=== PATIENT | male | born 1950 | race Caucasian/White ===

== ENCOUNTER 2022-11-19 06:38 | Emergency (ER) | payer MEDICARE ==
[2022-11-19] MEDS ORDERED: Sodium Chloride 0.9% 1,000 ML IV ONE (07:30)
[2022-11-19 08:20] LABS: ESTIMATED GFR 72 mL/min (>60)
[2022-11-19] MEDS ORDERED: Iopamidol 755 Mg/ML 100 ML Bottle IVPUSH ONE (08:26)
[2022-11-19] MEDS ORDERED: Sodium Chloride 0.9% 10 ML Syringe FLUSH PRN (08:26)
[2022-11-19] MEDS ORDERED: Sodium Chloride 0.9% 100 ML IV SCH (08:30)
== END 2022-11-19 12:05 ==
LOC: JD.ED 06:38
DX: M79.81 Nontraumatic hematoma of soft tissue (principal); I11.0 Hypertensive heart disease with heart failure; I50.9 Heart failure, unspecified; I48.91 Unspecified atrial fibrillation; E78.00 Pure hypercholesterolemia, unspecified; N40.0 Benign prostatic hyperplasia without lower urinary tract symptoms; Z79.899 Other long term (current) drug therapy
CPT/HCPCS: 36415; 71260; 74177; 80053; 81001; 83605; 83690; 84484; 85025; 85027; 85610; 86850; 86900; 86901; 93005; 96360; 99285; J3490; J7030; Q9967

== ENCOUNTER 2022-12-09 19:18 | Emergency (ER) | payer MEDICARE | END 2022-12-09 21:35 | disposition home or self-care (01) | LOC: JD.ED 19:18 | DX: T83.091A Other mechanical complication of indwelling urethral catheter, initial encounter (principal); I48.91 Unspecified atrial fibrillation; I11.0 Hypertensive heart disease with heart failure; I50.9 Heart failure, unspecified; E78.00 Pure hypercholesterolemia, unspecified; Z79.899 Other long term (current) drug therapy | CPT/HCPCS: 99283 ==

== ENCOUNTER 2022-12-11 16:09 | Emergency (ER) | payer MEDICARE | END 2022-12-11 18:57 | disposition home or self-care (01) | LOC: JD.ED 16:09 | DX: N39.0 Urinary tract infection, site not specified (principal); I48.91 Unspecified atrial fibrillation; I11.0 Hypertensive heart disease with heart failure; I50.9 Heart failure, unspecified; E78.00 Pure hypercholesterolemia, unspecified; J44.9 Chronic obstructive pulmonary disease, unspecified; Z79.899 Other long term (current) drug therapy | CPT/HCPCS: 81001; 87086; 87088; 87186; 99283 ==

== ENCOUNTER 2022-12-23 11:27 | Emergency (ER) | payer MEDICARE ==
[2022-12-23] MEDS ORDERED: Sodium Chloride 0.9% 10 ML Syringe FLUSH PRN (12:19)
[2022-12-23] MEDS ORDERED: Furosemide 40 MG/4 ML VIAL IVPUSH ONE (14:52)
== END 2022-12-23 16:48 | disposition home or self-care (01) ==
LOC: JD.ED 11:27
DX: R60.0 Localized edema (principal); I48.91 Unspecified atrial fibrillation; E78.00 Pure hypercholesterolemia, unspecified; I11.0 Hypertensive heart disease with heart failure; I50.9 Heart failure, unspecified; J44.9 Chronic obstructive pulmonary disease, unspecified; N40.0 Benign prostatic hyperplasia without lower urinary tract symptoms; Z86.73 Personal history of transient ischemic attack (TIA), and cerebral infarction without residual deficits; Z79.899 Other long term (current) drug therapy
CPT/HCPCS: 36415; 71045; 80053; 81003; 83880; 84484; 85025; 93005; 96374; 99284; J1940; J3490

== ENCOUNTER 2022-12-28 01:28 | Emergency (ER) | payer MEDICARE ==
[2022-12-28] MEDS ORDERED: Sodium Chloride 0.9% 10 ML Syringe FLUSH PRN (01:51)
[2022-12-28] MEDS ORDERED: Dextrose 5%-Lactated Ringers 1,000 ML IV SCH (02:00)
[2022-12-28 02:50] LABS: HEMOGLOBIN A1C 6.6 %
[2022-12-28 03:01] LABS: ESTIMATED GFR 49 mL/min (>60)
[2022-12-28] MEDS: Potassium Chloride 10 MEQ in Premix Bag 1 BAG IV SCH ×2 (03:37→04:53)
== END 2022-12-28 06:30 | disposition home or self-care (01) ==
LOC: JD.ED 01:28
DX: I11.0 Hypertensive heart disease with heart failure (principal); I50.9 Heart failure, unspecified; E87.6 Hypokalemia; J43.1 Panlobular emphysema; E11.59 Type 2 diabetes mellitus with other circulatory complications; I48.91 Unspecified atrial fibrillation; E78.00 Pure hypercholesterolemia, unspecified; Z79.899 Other long term (current) drug therapy
CPT/HCPCS: 36415; 71045; 80053; 81001; 82553; 83036; 83605; 83735; 83880; 84484; 85025; 85379; 85610; 85730; 93005; 96361; 96365; 96366; 99285; J3480; J3490; J7121; 93010

== ENCOUNTER 2023-01-04 12:23 | Emergency (ER) | payer MEDICARE ==
[2023-01-04] MEDS ORDERED: Sodium Chloride 0.9% 10 ML Syringe FLUSH PRN (12:51)
[2023-01-04] MEDS ORDERED: Sodium Chloride 0.9% 500 ML IV ONE (12:58)
[2023-01-04 13:31] LABS: ESTIMATED GFR 59 mL/min (>60)
[2023-01-04 14:52] LABS: CORONAVIRUS COVID-19 NAA NEGATIVE (NEGATIVE)
== END 2023-01-04 19:45 | disposition home or self-care (01) ==
LOC: JD.ED 12:23
DX: E86.9 Volume depletion, unspecified (principal); R53.1 Weakness; I48.20 Chronic atrial fibrillation, unspecified; I11.0 Hypertensive heart disease with heart failure; I50.9 Heart failure, unspecified; E78.00 Pure hypercholesterolemia, unspecified; J44.9 Chronic obstructive pulmonary disease, unspecified; Z87.891 Personal history of nicotine dependence; Z79.899 Other long term (current) drug therapy; Z20.822 Contact with and (suspected) exposure to COVID-19
CPT/HCPCS: 0241U; 36415; 71045; 80053; 81003; 82947; 83605; 83735; 84484; 85007; 85027; 85610; 85730; 86140; 87040; 93005; 99285; J3490; J7030; 93010

== ENCOUNTER 2023-03-08 15:45 | Inpatient (IN) | payer MEDICARE, MEDICAID ==
[2023-03-08 17:19] LABS: HEMATOCRIT 48.7 % (40.1-51.0); HEMOGLOBIN 15.8 gm/dl (13.7-17.5); MEAN CORPUSCULAR HEMOGLOBIN 27.1 pg (25.7-32.2); MEAN CORPUSCULAR HGB CONC 32.4 g/dl (32.2-35.5); MEAN CORPUSCULAR VOLUME 83.7 fl (79.0-92.2); MEAN PLATELET VOLUME 11.7 fl (9.4-12.3); PLATELET COUNT,PLT 182 K/mm3 (163-337); RED BLOOD CELL COUNT 5.82 M/mm3 (4.63-6.08); WHITE BLOOD CELL COUNT,WBC 9.95 K/mm3 (4.23-9.07)
[2023-03-08 17:38] LABS: INR 1.04; PROTHROMBIN TIME 11.1 SECONDS (9.7-12.0)
[2023-03-08 17:40] LABS: PTT,PARTIAL THROMBOPLSTIN TIME 25.1 SECONDS (21.7-31.4)
[2023-03-08 17:43] LABS: BAND PERCENT MAN 0 % (0-10); BASOPHILS PERCENT MAN 0 (0.2-1.2); EOSINOPHILS PERCENT MAN 1 % (0.8-7.0); LYMPHOCYTES % ATYPICAL MANUAL 0 %; LYMPHOCYTES PERCENT MAN 33 % (20-40); MONOCYTES PERCENT MAN 8 % (2-10)
[2023-03-08 17:44] LABS: PLATELET COUNT ESTIMATE ADEQUATE
[2023-03-08 17:50] LABS: A/G RATIO 1.2 (1-2); ALBUMIN 4.7 g/dl (3.4-5.0); BILIRUBIN TOTAL 2.1 mg/dL (0.2-1.0); BUN/CREATININE RATIO 24.7 (14-18); CALCIUM 9.3 mg/dL (8.5-10.1); CREATININE 1.5 mg/dL (0.7-1.3); EST CRCL DRUG DOSING (CG) 51.05 mL/min; MAGNESIUM 2.4 mg/dL (1.8-2.4); PROTEIN TOTAL,TP 8.7 g/dl (6.4-8.2); TSH 2.368 uIU/mL (0.358-3.74)
[2023-03-08] MEDS ORDERED: Acetaminophen 325 MG Tab PO PRN (17:52)
[2023-03-08 18:31] LABS: APPEARANCE,URINE CLEAR (Clear); BILIRUBIN,URINE NEGATIVE (Negative); COLOR,URINE YELLOW (Yellow); GLUCOSE,URINE 2+ (Negative); KETONES,URINE NEGATIVE (Negative); LEUKOCYTE ESTERASE,URINE NEGATIVE (Negative); NITRITE,URINE NEGATIVE (Negative); OCCULT BLOOD,URINE NEGATIVE (Negative); PROTEIN,URINE NEGATIVE (Negative)
[2023-03-08] MEDS: Heparin Sodium 5,000 Units/ML Vial SUBCUT SCH (19:01)
[2023-03-08] MEDS: Sodium Chloride 0.9% 1,000 ML IV SCH (19:01)
[2023-03-09] MEDS: Heparin Sodium 5,000 Units/ML Vial SUBCUT SCH ×3 (02:57→17:46)
[2023-03-09 06:12] LABS: BASOPHILS ABSOLUTE AUTO 0.02 K/mm3 (0.01-0.08); BASOPHILS PERCENT AUTO 0.2 % (0.1-1.2); EOSINOPHILS PERCENT AUTO 1.2 (0.8-7.0); HEMATOCRIT 41.7 % (40.1-51.0); IMMATURE GRAN ABSOLUTE AUTO 0.02 K/mm3 (0.00-0.10); IMMATURE GRAN PERCENT AUTO 0.2 % (<=1.0); LYMPHOCYTES ABSOLUTE AUTO 2.38 K/mm3 (1.32-3.57); LYMPHOCYTES PERCENT AUTO 28.1 % (21.8-53.1); MEAN CORPUSCULAR HEMOGLOBIN 27.3 pg (25.7-32.2); MEAN CORPUSCULAR HGB CONC 32.6 g/dl (32.2-35.5); MEAN CORPUSCULAR VOLUME 83.7 fl (79.0-92.2); MEAN PLATELET VOLUME 12.1 fl (9.4-12.3); MONOCYTES ABSOLUTE AUTO 1.02 K/mm3 (0.30-0.82); MONOCYTES PERCENT AUTO 12.1 % (5.3-12.2); NEUTROPHILS ABSOLUTE AUTO 4.92 K/mm3 (1.78-5.38); NEUTROPHILS PERCENT AUTO 58.2 % (34.0-67.9); PLATELET COUNT,PLT 160 K/mm3 (163-337); RED BLOOD CELL COUNT 4.98 M/mm3 (4.63-6.08); WHITE BLOOD CELL COUNT,WBC 8.46 K/mm3 (4.23-9.07)
[2023-03-09 06:29] LABS: HEMOGLOBIN 13.6 gm/dl (13.7-17.5)
[2023-03-09 06:30] LABS: A/G RATIO 1.2 (1-2); ALBUMIN 3.5 g/dl (3.4-5.0); ANION GAP 12.9 (5-15); BUN/CREATININE RATIO 25.4 (14-18); CALCIUM 8.7 mg/dL (8.5-10.1); CREATININE 1.3 mg/dL (0.7-1.3); EST CRCL DRUG DOSING (CG) 55.17 mL/min; POTASSIUM,K 3.9 mEq/L (3.5-5.1); PROTEIN TOTAL,TP 6.4 g/dl (6.4-8.2)
[2023-03-09] MEDS ORDERED: Metoprolol Succinate 25 MG Tab.ER PO SCH (09:00)
[2023-03-09] MEDS: Sacubitril/Valsartan 1 EACH Tablet PO SCH ×3 (09:07→22:17)
[2023-03-09] MEDS: Furosemide 20 MG Tab PO SCH ×3 (09:09→21:00)
[2023-03-09] MEDS: Pravastatin 20 MG Tab PO SCH (09:09)
[2023-03-09] MEDS: Potassium Chloride 20 MEQ Tab.ER PO SCH (09:09)
[2023-03-09] MEDS: Sodium Chloride 0.9% 1,000 ML IV SCH (09:17)
[2023-03-09] MEDS: Tamsulosin 0.4 MG Cap.ER PO SCH (10:55)
[2023-03-09] MEDS: Empagliflozin 10 MG Tab PO SCH (10:56)
[2023-03-09] MEDS: QUEtiapine 25 MG Tab PO SCH ×2 (20:15→21:00)
[2023-03-10] MEDS: Heparin Sodium 5,000 Units/ML Vial SUBCUT SCH ×2 (02:26→10:11)
[2023-03-10 06:13] LABS: BASOPHILS ABSOLUTE AUTO 0.01 K/mm3 (0.01-0.08); BASOPHILS PERCENT AUTO 0.1 % (0.1-1.2); EOSINOPHILS ABSOLUTE AUTO 0.02 K/mm3 (0.04-0.54); EOSINOPHILS PERCENT AUTO 0.2 (0.8-7.0); HEMATOCRIT 38.7 % (40.1-51.0); HEMOGLOBIN 12.7 gm/dl (13.7-17.5); IMMATURE GRAN ABSOLUTE AUTO 0.02 K/mm3 (0.00-0.10); IMMATURE GRAN PERCENT AUTO 0.2 % (<=1.0); LYMPHOCYTES ABSOLUTE AUTO 2.05 K/mm3 (1.32-3.57); LYMPHOCYTES PERCENT AUTO 22.5 % (21.8-53.1); MEAN CORPUSCULAR HEMOGLOBIN 27.6 pg (25.7-32.2); MEAN CORPUSCULAR HGB CONC 32.8 g/dl (32.2-35.5); MEAN CORPUSCULAR VOLUME 84.1 fl (79.0-92.2); MEAN PLATELET VOLUME 12.2 fl (9.4-12.3); MONOCYTES ABSOLUTE AUTO 1.56 K/mm3 (0.30-0.82); MONOCYTES PERCENT AUTO 17.1 % (5.3-12.2); NEUTROPHILS ABSOLUTE AUTO 5.45 K/mm3 (1.78-5.38); NEUTROPHILS PERCENT AUTO 59.9 % (34.0-67.9); PLATELET COUNT,PLT 144 K/mm3 (163-337); WHITE BLOOD CELL COUNT,WBC 9.11 K/mm3 (4.23-9.07)
[2023-03-10 06:31] LABS: ALBUMIN 3.3 g/dl (3.4-5.0); ANION GAP 12.5 (5-15); BILIRUBIN TOTAL 2.7 mg/dL (0.2-1.0); CALCIUM 8.7 mg/dL (8.5-10.1); CREATININE 1.2 mg/dL (0.7-1.3); EST CRCL DRUG DOSING (CG) 59.77 mL/min; POTASSIUM,K 3.5 mEq/L (3.5-5.1); PROTEIN TOTAL,TP 6.6 g/dl (6.4-8.2)
[2023-03-10] MEDS ORDERED: Metoprolol Succinate 25 MG Tab.ER PO SCH (09:00)
[2023-03-10 09:16] LABS: SLIDE REVIEW ABNORMAL SMEAR
[2023-03-10] MEDS ORDERED: Furosemide 20 MG Tab PO SCH (10:00)
[2023-03-10] MEDS: Sacubitril/Valsartan 1 EACH Tablet PO SCH (10:09)
[2023-03-10] MEDS: Potassium Chloride 20 MEQ Tab.ER PO SCH (10:10)
[2023-03-10] MEDS: Empagliflozin 10 MG Tab PO SCH (10:10)
[2023-03-10] MEDS: Pravastatin 20 MG Tab PO SCH (10:10)
[2023-03-10] MEDS: Tamsulosin 0.4 MG Cap.ER PO SCH (10:18)
[2023-03-10] MEDS: Furosemide 20 MG Tab PO SCH (13:10)
== END 2023-03-10 16:44 | disposition home or self-care (01) | DRG 641 ==
LOC: JD.ED 15:45 → JD.OB 17:53 → JD.MS 17:54
PROVIDERS: ADMIT Internal Medicine; ATTEND Internal Medicine
DX: R62.7 Adult failure to thrive (principal); E86.0 Dehydration; J43.1 Panlobular emphysema; F03.90 Unspecified dementia, unspecified severity, without behavioral disturbance, psychotic disturbance, mood disturbance, and anxiety; I95.2 Hypotension due to drugs; T44.7X5A Adverse effect of beta-adrenoreceptor antagonists, initial encounter; I48.91 Unspecified atrial fibrillation; I11.0 Hypertensive heart disease with heart failure; F32.A Depression, unspecified; E11.9 Type 2 diabetes mellitus without complications; I50.9 Heart failure, unspecified; J44.9 Chronic obstructive pulmonary disease, unspecified; E78.00 Pure hypercholesterolemia, unspecified; Z68.21 Body mass index [BMI] 21.0-21.9, adult; N40.0 Benign prostatic hyperplasia without lower urinary tract symptoms; Z79.899 Other long term (current) drug therapy; Z95.0 Presence of cardiac pacemaker; Z86.73 Personal history of transient ischemic attack (TIA), and cerebral infarction without residual deficits; Z87.891 Personal history of nicotine dependence
CPT/HCPCS: 36415; 70450; 70450-26; 71045; 71045-26; 80053; 81003; 82140; 82947; 83735; 83880; 84443; 84484; 85007; 85025; 85027; 85610; 85730; 87040; 93005; 93010; 97116-GP; 97161-GP; 97166-GO; 97530-GO; 97530-GP; 99223; 99239; 99285; A9270-GY; J1644; J7030

== ENCOUNTER 2023-10-30 14:05 | Emergency (ER) | payer MEDICARE, MEDICAID ==
[2023-10-30] MEDS ORDERED: Sodium Chloride 0.9% 10 ML Syringe FLUSH PRN (14:22)
[2023-10-30] MEDS ORDERED: Sodium Chloride 0.9% 1,000 ML IV SCH (14:30)
[2023-10-30] MEDS ORDERED: Sodium Chloride 0.9% 1,000 ML IV ONE (14:34)
[2023-10-30 15:02] LABS: BASOPHILS PERCENT AUTO 0.4 % (0.0-1.0); EOSINOPHILS PERCENT AUTO 0.5 % (0.0-6.0); HEMOGLOBIN 15.8 gm/dl (14.0-18.0); IMMATURE GRAN ABSOLUTE AUTO 0.02 K/mm3 (0.00-0.05); IMMATURE GRAN PERCENT AUTO 0.3 % (0.0-0.4); LYMPHOCYTES ABSOLUTE AUTO 2.1 K/mm3 (1.0-4.8); LYMPHOCYTES PERCENT AUTO 26.4 % (24.0-44.0); MEAN CORPUSCULAR HEMOGLOBIN 27.9 pg (28.0-32.0); MEAN CORPUSCULAR HGB CONC 32.2 g/dl (32.0-36.0); MEAN CORPUSCULAR VOLUME 86.6 fl (83.0-99.0); MEAN PLATELET VOLUME 10.6 fl (9.4-12.4); MONOCYTES ABSOLUTE AUTO 0.7 K/mm3 (0.0-0.8); NEUTROPHILS PERCENT AUTO 63.4 % (41.0-71.0); PLATELET COUNT,PLT 173 K/mm3 (150-400); RED BLOOD CELL COUNT 5.66 M/mm3 (4.52-5.90); WHITE BLOOD CELL COUNT,WBC 7.85 K/mm3 (3.9-11.3)
[2023-10-30 15:31] LABS: A/G RATIO 1.1 (1-2); ALANINE AMINOTRANSFERASE,ALT 23 U/L (16-63); ALBUMIN 3.7 g/dl (3.4-5.0); ALKALINE PHOSPHATASE 70 U/L (46-116); ANION GAP 10.7 (5-15); ASPARTATE AMNIOTRANSFERASE,AST 25 U/L (15-37); BLOOD UREA NITROGEN,BUN 23 mg/dL (7-18); BUN/CREATININE RATIO 17.7 (14-18); C-REACTIVE PROTEIN <0.2 mg/dL (<1.0); CALCIUM 8.7 mg/dL (8.5-10.1); CARBON DIOXIDE,CO2 30 mEq/L (21-32); CHLORIDE,CL 103 mEq/L (98-107); CREATININE 1.3 mg/dL (0.7-1.3); EST CRCL DRUG DOSING (CG) 49.43 mL/min; ESTIMATED GFR 58 mL/min (>60); GLUCOSE RANDOM 123 mg/dL (70-99); LIPASE 25 U/L (16-77); MAGNESIUM 2.1 mg/dL (1.8-2.4); POTASSIUM,K 3.7 mEq/L (3.5-5.1); PROTEIN TOTAL,TP 7.2 g/dl (6.4-8.2); SODIUM,NA 140 mEq/L (136-145); TROPONIN I HIGH SENSITIVITY 16 pg/mL (<=76)
[2023-10-30 15:48] LABS: APPEARANCE,URINE CLEAR (Clear); BILIRUBIN,URINE NEGATIVE (Negative); COLOR,URINE YELLOW (Yellow); GLUCOSE,URINE 2+ (Negative); KETONES,URINE NEGATIVE (Negative); LEUKOCYTE ESTERASE,URINE NEGATIVE (Negative); NITRITE,URINE NEGATIVE (Negative); OCCULT BLOOD,URINE NEGATIVE (Negative); PROTEIN,URINE NEGATIVE (Negative)
[2023-10-30 16:01] LABS: BACTERIA,URINE OCCASIONAL /hpf (FEW); MUCUS,URINE NOT SEEN /hpf (FEW); RBC,URINE 0-5 /hpf (0-5); SQUAMOUS EPITHELIAL CELLS,UR NOT SEEN /hpf (0-5); WBC,URINE 0-5 /hpf (0-5)
[2023-10-30 16:24] LABS: CORONAVIRUS COVID-19 NAA NEGATIVE (NEGATIVE); INFLUENZA A NAA NEGATIVE (NEGATIVE); RESPIRATORY SYNCYTIAL VIR NAA NEGATIVE (NEGATIVE)
== END 2023-10-30 17:25 | disposition home or self-care (01) ==
LOC: JD.ED 14:05
DX: Z95.810 Presence of automatic (implantable) cardiac defibrillator (principal); G47.9 Sleep disorder, unspecified; I11.0 Hypertensive heart disease with heart failure; I50.9 Heart failure, unspecified; E78.00 Pure hypercholesterolemia, unspecified; J44.9 Chronic obstructive pulmonary disease, unspecified; Z79.899 Other long term (current) drug therapy
CPT/HCPCS: 0241U; 36415; 71045; 80053; 81001; 83605; 83690; 83735; 84484; 85025; 86140; 93005; 96360; 96361; 99285; J3490; J7030; 99284

== ENCOUNTER 2024-02-26 11:38 | Emergency (ER) | payer MEDICARE, MEDICAID ==
[2024-02-26 13:31] LABS: BASOPHILS PERCENT AUTO 0.5 % (0.0-1.0); EOSINOPHILS ABSOLUTE AUTO 0.1 K/mm3 (0.0-0.4); EOSINOPHILS PERCENT AUTO 0.9 % (0.0-6.0); HEMATOCRIT 47.5 % (42.0-52.0); HEMOGLOBIN 15.2 gm/dl (14.0-18.0); IMMATURE GRAN ABSOLUTE AUTO 0.02 K/mm3 (0.00-0.05); IMMATURE GRAN PERCENT AUTO 0.2 % (0.0-0.4); LYMPHOCYTES ABSOLUTE AUTO 2.7 K/mm3 (1.0-4.8); LYMPHOCYTES PERCENT AUTO 30.9 % (24.0-44.0); MEAN CORPUSCULAR HEMOGLOBIN 27.8 pg (28.0-32.0); MEAN PLATELET VOLUME 11.4 fl (9.4-12.4); MONOCYTES ABSOLUTE AUTO 0.9 K/mm3 (0.0-0.8); MONOCYTES PERCENT AUTO 10.6 % (0.0-8.0); NEUTROPHILS PERCENT AUTO 56.9 % (41.0-71.0); PLATELET COUNT,PLT 169 K/mm3 (150-400); RED BLOOD CELL COUNT 5.46 M/mm3 (4.52-5.90); WHITE BLOOD CELL COUNT,WBC 8.76 K/mm3 (3.9-11.3)
[2024-02-26 13:34] LABS: APPEARANCE,URINE CLEAR (Clear); BILIRUBIN,URINE NEGATIVE (Negative); COLOR,URINE YELLOW (Yellow); GLUCOSE,URINE 2+ (Negative); KETONES,URINE TRACE (Negative); LEUKOCYTE ESTERASE,URINE NEGATIVE (Negative); NITRITE,URINE NEGATIVE (Negative); OCCULT BLOOD,URINE NEGATIVE (Negative); PH,URINE 5.5 (5.0-8.0); PROTEIN,URINE TRACE (Negative)
[2024-02-26 13:40] LABS: INR 1.06; PROTHROMBIN TIME 11.3 SECONDS (9.7-12.0)
[2024-02-26 13:49] LABS: BACTERIA,URINE RARE /hpf (FEW); EPITHELIAL CELLS,URINE 0-5 /hpf (0-5); MUCUS,URINE FEW /hpf (FEW); RBC,URINE 0-5 /hpf (0-5); WBC,URINE 0-5 /hpf (0-5)
[2024-02-26 13:51] LABS: D-DIMER QUANTITATIVE 0.73 mg/L (0.19-0.50)
[2024-02-26 14:10] LABS: LACTIC ACID 1.4 mmol/L (0.4-2.0)
[2024-02-26 14:17] LABS: A/G RATIO 1.3 (1-2); ALBUMIN 3.9 g/dl (3.4-5.0); ANION GAP 14.7 (5-15); BILIRUBIN TOTAL 1.6 mg/dL (0.2-1.0); BUN/CREATININE RATIO 17.1 (14-18); CALCIUM 9.3 mg/dL (8.5-10.1); CREATININE 1.4 mg/dL (0.7-1.3); EST CRCL DRUG DOSING (CG) 53.9 mL/min; MAGNESIUM 2.2 mg/dL (1.8-2.4); PHOSPHORUS 3.8 mg/dL (2.6-4.7); POTASSIUM,K 3.7 mEq/L (3.5-5.1)
[2024-02-26] MEDS: Iopamidol 612 MG/ML 100 ML Bottle IVPUSH ONE (15:29)
[2024-02-26] MEDS: Iopamidol 612 MG/ML 30 ML SDV IVPUSH ONE (15:29)
== END 2024-02-26 18:24 | disposition home or self-care (01) ==
LOC: JD.ED 11:38 → JD.MS 15:14 → UNDOADMIN 15:14 → JD.ED 18:24
DX: C79.9 Secondary malignant neoplasm of unspecified site (principal); J44.9 Chronic obstructive pulmonary disease, unspecified; Z79.899 Other long term (current) drug therapy; Z86.73 Personal history of transient ischemic attack (TIA), and cerebral infarction without residual deficits; Z95.0 Presence of cardiac pacemaker; W19.XXXA Unspecified fall, initial encounter
CPT/HCPCS: 36415; 71260; 74177; 80053; 81001; 83605; 83690; 83735; 84100; 84484; 85025; 85379; 85610; 99284; Q9967; 99285

== ENCOUNTER 2024-02-28 20:20 | Inpatient (IN) | payer MEDICARE, MEDICAID ==
[2024-02-28] MEDS ORDERED: Sodium Chloride 0.9% 10 ML Syringe FLUSH PRN (22:38)
[2024-02-28] MEDS ORDERED: Lactated Ringers 1,000 ML IV SCH (22:45)
[2024-02-28 23:03] LABS: BASOPHILS PERCENT AUTO 0.2 % (0.0-1.0); EOSINOPHILS PERCENT AUTO 0.2 % (0.0-6.0); HEMATOCRIT 45.5 % (42.0-52.0); HEMOGLOBIN 14.8 gm/dl (14.0-18.0); IMMATURE GRAN ABSOLUTE AUTO 0.05 K/mm3 (0.00-0.05); IMMATURE GRAN PERCENT AUTO 0.4 % (0.0-0.4); LYMPHOCYTES ABSOLUTE AUTO 1.4 K/mm3 (1.0-4.8); LYMPHOCYTES PERCENT AUTO 10.1 % (24.0-44.0); MEAN CORPUSCULAR HEMOGLOBIN 28.1 pg (28.0-32.0); MEAN CORPUSCULAR HGB CONC 32.5 g/dl (32.0-36.0); MEAN CORPUSCULAR VOLUME 86.3 fl (83.0-99.0); MEAN PLATELET VOLUME 12.5 fl (9.4-12.4); MONOCYTES ABSOLUTE AUTO 1.4 K/mm3 (0.0-0.8); MONOCYTES PERCENT AUTO 10.1 % (0.0-8.0); NEUTROPHILS ABSOLUTE AUTO 10.8 K/mm3 (1.8-7.7); PLATELET COUNT,PLT 122 K/mm3 (150-400); RED BLOOD CELL COUNT 5.27 M/mm3 (4.52-5.90); WHITE BLOOD CELL COUNT,WBC 13.72 K/mm3 (3.9-11.3)
[2024-02-28 23:12] LABS: APPEARANCE,URINE CLEAR (Clear); BILIRUBIN,URINE NEGATIVE (Negative); COLOR,URINE YELLOW (Yellow); GLUCOSE,URINE 3+ (Negative); KETONES,URINE NEGATIVE (Negative); LEUKOCYTE ESTERASE,URINE NEGATIVE (Negative); NITRITE,URINE NEGATIVE (Negative); OCCULT BLOOD,URINE NEGATIVE (Negative); PH,URINE 5.5 (5.0-8.0); PROTEIN,URINE NEGATIVE (Negative); UROBILINOGEN,URINE 0.2 (0.2-1.0)
[2024-02-28 23:58] LABS: A/G RATIO 1.3 (1-2); ALBUMIN 3.9 g/dl (3.4-5.0); ANION GAP 18.1 (5-15); BILIRUBIN TOTAL 1.3 mg/dL (0.2-1.0); BUN/CREATININE RATIO 17.1 (14-18); CREATININE 1.4 mg/dL (0.7-1.3); EST CRCL DRUG DOSING (CG) 52.35 mL/min; POTASSIUM,K 4.1 mEq/L (3.5-5.1)
[2024-02-29] MEDS: Ondansetron 4 MG/2 ML SDV IVPUSH ONE (01:21)
[2024-02-29] MEDS: Morphine 4 MG/ML Syringe IVPUSH ONE (01:21)
[2024-02-29] MEDS: Iopamidol 755 Mg/ML 100 ML Bottle IVPUSH ONE (02:08)
[2024-02-29] MEDS: Sodium Chloride 0.9% 1,000 ML IV SCH (03:04)
[2024-02-29] MEDS: Morphine 4 MG/ML Syringe IVPUSH PRN (05:04)
[2024-02-29] MEDS ORDERED: Ondansetron 4 MG/2 ML SDV IV PRN (06:06)
[2024-02-29] MEDS: Insulin Lispro 100 Unit/ML 3 ML KwikPen SUBCUT SCH (07:28)
[2024-02-29] MEDS: Empagliflozin 10 MG Tab PO SCH (08:57)
[2024-02-29] MEDS: Tamsulosin 0.4 MG Cap.ER PO SCH (08:57)
[2024-02-29] MEDS: Furosemide 20 MG Tab PO SCH (08:57)
[2024-02-29] MEDS: Potassium Chloride 20 MEQ Tab.ER PO SCH (08:57)
[2024-02-29] MEDS ORDERED: Non-Formulary Medication 1 Each (Potassium Chloride [Potassium Chloride] 20 MEQ Tablet.Er) PO SCH (09:00)
[2024-02-29] MEDS: Acetaminophen 325 MG Tab PO PRN (15:55)
[2024-02-29] MEDS ORDERED: Pravastatin 20 MG Tab PO SCH (21:00)
== END 2024-02-29 18:43 | DRG 536 ==
LOC: JD.ED 20:20 → JD.MS 02-29 02:00
PROVIDERS: ADMIT Internal Medicine; ATTEND Internal Medicine
DX: S72.002A Fracture of unspecified part of neck of left femur, initial encounter for closed fracture (principal); I50.22 Chronic systolic (congestive) heart failure; J44.9 Chronic obstructive pulmonary disease, unspecified; F03.93 Unspecified dementia, unspecified severity, with mood disturbance; Z99.0 Dependence on aspirator; Z66 Do not resuscitate; X58.XXXA Exposure to other specified factors, initial encounter; N40.0 Benign prostatic hyperplasia without lower urinary tract symptoms; R33.9 Retention of urine, unspecified; R53.1 Weakness; I48.0 Paroxysmal atrial fibrillation; R93.0 Abnormal findings on diagnostic imaging of skull and head, not elsewhere classified; J43.1 Panlobular emphysema; N18.9 Chronic kidney disease, unspecified; E11.22 Type 2 diabetes mellitus with diabetic chronic kidney disease; W19.XXXA Unspecified fall, initial encounter; Z79.899 Other long term (current) drug therapy; Z86.73 Personal history of transient ischemic attack (TIA), and cerebral infarction without residual deficits; Z85.528 Personal history of other malignant neoplasm of kidney; Z95.810 Presence of automatic (implantable) cardiac defibrillator
CPT/HCPCS: 36415; 51702; 70450; 71045; 71275; 73080; 73502; 73562; 80053; 81003; 83690; 83880; 84484; 85025; 85379; 93005; 96374; 96375; 99285; C1758; J2270; J2405; 51701; 82947; 93010; 94761; 94762; 99284; A9270-GY; J1815; J7030; Q9967

== ENCOUNTER 2024-04-26 20:16 | Emergency (ER) | payer MEDICARE, MEDICAID ==
[2024-04-26 21:22] LABS: HEMATOCRIT 38.9 % (42.0-52.0); HEMOGLOBIN 12.3 gm/dl (14.0-18.0); MEAN CORPUSCULAR HEMOGLOBIN 25.7 pg (28.0-32.0); MEAN CORPUSCULAR HGB CONC 31.6 g/dl (32.0-36.0); MEAN CORPUSCULAR VOLUME 81.4 fl (83.0-99.0); MEAN PLATELET VOLUME 10.1 fl (9.4-12.4); PLATELET COUNT,PLT 371 K/mm3 (150-400); RED BLOOD CELL COUNT 4.78 M/mm3 (4.52-5.90); WHITE BLOOD CELL COUNT,WBC 12.17 K/mm3 (3.9-11.3)
[2024-04-26 21:23] LABS: APPEARANCE,URINE SLT CLOUDY (Clear); BILIRUBIN,URINE NEGATIVE (Negative); COLOR,URINE YELLOW (Yellow); GLUCOSE,URINE 3+ (Negative); KETONES,URINE NEGATIVE (Negative); LEUKOCYTE ESTERASE,URINE 1+ (Negative); NITRITE,URINE NEGATIVE (Negative); OCCULT BLOOD,URINE 1+ (Negative); PH,URINE 7.5 (5.0-8.0); PROTEIN,URINE 1+ (Negative)
[2024-04-26] MEDS: Sodium Chloride 0.9% 1,000 ML IV ONE (21:25)
[2024-04-26] MEDS: Sodium Chloride 0.9% 10 ML Syringe FLUSH PRN (21:26)
[2024-04-26 21:37] LABS: INR 1.15; PROTHROMBIN TIME 12.1 SECONDS (9.7-12.0)
[2024-04-26 21:41] LABS: A/G RATIO 0.7 (1-2); ALANINE AMINOTRANSFERASE,ALT 42 U/L (16-63); ALBUMIN 2.5 g/dl (3.4-5.0); ALKALINE PHOSPHATASE 304 U/L (46-116); ANION GAP 12.9 (5-15); ASPARTATE AMNIOTRANSFERASE,AST 44 U/L (15-37); BILIRUBIN TOTAL 0.9 mg/dL (0.2-1.0); BLOOD UREA NITROGEN,BUN 13 mg/dL (7-18); BUN/CREATININE RATIO 14.4 (14-18); C-REACTIVE PROTEIN 1.58 mg/dL (<0.30); CALCIUM 8.3 mg/dL (8.5-10.1); CARBON DIOXIDE,CO2 28 mEq/L (21-32); CHLORIDE,CL 102 mEq/L (98-107); CREATININE 0.9 mg/dL (0.7-1.3); ESTIMATED GFR 91 mL/min (>60); GLUCOSE RANDOM 159 mg/dL (70-99); POTASSIUM,K 3.9 mEq/L (3.5-5.1); PROTEIN TOTAL,TP 6.3 g/dl (6.4-8.2); SODIUM,NA 139 mEq/L (136-145)
[2024-04-26 21:41] LABS: BACTERIA,URINE FEW /hpf (FEW); SQUAMOUS EPITHELIAL CELLS,UR 0-5 /hpf (0-5); WBC,URINE 30-40 /hpf (0-5)
[2024-04-26 21:42] LABS: MUCUS,URINE FEW /hpf (FEW)
[2024-04-26 21:46] LABS: LACTIC ACID 0.9 mmol/L (0.4-2.0)
[2024-04-26 21:47] LABS: BAND PERCENT MAN 0 % (0-10); BASOPHILS PERCENT MAN 1 (0.2-1.2); EOSINOPHILS PERCENT MAN 3 % (0.8-7.0); LYMPHOCYTES % ATYPICAL MANUAL 0 %; LYMPHOCYTES PERCENT MAN 14 % (20-40); MONOCYTES PERCENT MAN 4 % (2-10)
[2024-04-26 21:49] LABS: HYPOCHROMASIA FEW; PLATELET COUNT ESTIMATE ADEQUATE; POLYCHROMASIA FEW
[2024-04-26] MEDS: cefTRIAXone 2 GM in Sodium Chloride 0.9% 100 ML IV ONE (22:46)
== END 2024-04-27 00:30 | disposition home or self-care (01) ==
LOC: JD.ED 20:16
DX: N39.0 Urinary tract infection, site not specified (principal); J44.9 Chronic obstructive pulmonary disease, unspecified; E11.9 Type 2 diabetes mellitus without complications; Z79.899 Other long term (current) drug therapy
CPT/HCPCS: 36415; 51702; 71045; 80053; 81001; 83605; 85007; 85027; 85610; 86140; 87040; 96361; 96365; 99285; J0696; J3490; J7030

== ENCOUNTER 2024-05-14 12:19 | Inpatient (IN) | payer MEDICAID, MEDICARE ==
[2024-05-14 13:44] LABS: BASOPHILS ABSOLUTE AUTO 0.1 K/mm3 (0.0-0.2); BASOPHILS PERCENT AUTO 0.4 % (0.0-1.0); EOSINOPHILS ABSOLUTE AUTO 0.1 K/mm3 (0.0-0.4); EOSINOPHILS PERCENT AUTO 1.1 % (0.0-6.0); HEMATOCRIT 50.4 % (42.0-52.0); IMMATURE GRAN ABSOLUTE AUTO 0.05 K/mm3 (0.00-0.05); IMMATURE GRAN PERCENT AUTO 0.4 % (0.0-0.4); LYMPHOCYTES PERCENT AUTO 17.5 % (24.0-44.0); MEAN CORPUSCULAR HEMOGLOBIN 25.2 pg (28.0-32.0); MEAN CORPUSCULAR HGB CONC 31.2 g/dl (32.0-36.0); MEAN PLATELET VOLUME 10.6 fl (9.4-12.4); MONOCYTES ABSOLUTE AUTO 0.9 K/mm3 (0.0-0.8); MONOCYTES PERCENT AUTO 7.7 % (0.0-8.0); NEUTROPHILS ABSOLUTE AUTO 8.5 K/mm3 (1.8-7.7); NEUTROPHILS PERCENT AUTO 72.9 % (41.0-71.0); PLATELET COUNT,PLT 304 K/mm3 (150-400); RED BLOOD CELL COUNT 6.22 M/mm3 (4.52-5.90); WHITE BLOOD CELL COUNT,WBC 11.64 K/mm3 (3.9-11.3)
[2024-05-14 13:45] LABS: HEMOGLOBIN 15.7 gm/dl (14.0-18.0)
[2024-05-14 14:06] LABS: A/G RATIO 0.8 (1-2); ALANINE AMINOTRANSFERASE,ALT 44 U/L (16-63); ALBUMIN 3.8 g/dl (3.4-5.0); ALKALINE PHOSPHATASE 267 U/L (46-116); ANION GAP 14.6 (5-15); BILIRUBIN TOTAL 1.3 mg/dL (0.2-1.0); BLOOD UREA NITROGEN,BUN 27 mg/dL (7-18); BUN/CREATININE RATIO 24.5 (14-18); CALCIUM 9.6 mg/dL (8.5-10.1); CARBON DIOXIDE,CO2 29 mEq/L (21-32); CHLORIDE,CL 97 mEq/L (98-107); CREATININE 1.1 mg/dL (0.7-1.3); ESTIMATED GFR 71 mL/min (>60); GLUCOSE RANDOM 132 mg/dL (70-99); PROTEIN TOTAL,TP 8.6 g/dl (6.4-8.2); SODIUM,NA 136 mEq/L (136-145)
[2024-05-14 14:11] LABS: ASPARTATE AMNIOTRANSFERASE,AST 54 U/L (15-37); POTASSIUM,K 4.6 mEq/L (3.5-5.1)
[2024-05-14] MEDS ORDERED: Sodium Chloride 0.9% 1,000 ML IV SCH (14:30)
[2024-05-14] MEDS ORDERED: Ondansetron 4 MG Tab.DIS PO PRN (17:49)
[2024-05-14] MEDS ORDERED: Polyethylene Glycol 3350 Powder 17 GM Packet PO PRN (17:49)
[2024-05-14] MEDS ORDERED: Acetaminophen 325 MG Tab PO PRN (17:49)
[2024-05-14] MEDS ORDERED: Docusate Sodium 100 MG Cap PO PRN (17:49)
[2024-05-14] MEDS ORDERED: Albuterol/Ipratropium 3.0-0.5 MG/3 ML Neb Soln NEB PRN (18:34)
[2024-05-14] MEDS: Enoxaparin 40 MG/0.4 ML Syringe SUBCUT SCH ×2 (19:31→20:01)
[2024-05-14] MEDS: QUEtiapine 25 MG Tab PO SCH (20:01)
[2024-05-14 20:23] LABS: APPEARANCE,URINE SLT CLOUDY (Clear); BILIRUBIN,URINE NEGATIVE (Negative); COLOR,URINE YELLOW (Yellow); GLUCOSE,URINE 3+ (Negative); KETONES,URINE NEGATIVE (Negative); LEUKOCYTE ESTERASE,URINE 1+ (Negative); NITRITE,URINE POSITIVE (Negative); OCCULT BLOOD,URINE TRACE-INTACT (Negative); PROTEIN,URINE TRACE (Negative)
[2024-05-14 20:32] LABS: BACTERIA,URINE FEW /hpf (FEW); MUCUS,URINE FEW /hpf (FEW); SQUAMOUS EPITHELIAL CELLS,UR 0-5 /hpf (0-5); WBC,URINE 30-40 /hpf (0-5)
[2024-05-14] MEDS: Insulin Lispro 100 Unit/ML 3 ML KwikPen SUBCUT SCH (22:15)
[2024-05-15 06:07] LABS: A/G RATIO 0.9 (1-2); ALANINE AMINOTRANSFERASE,ALT 38 U/L (16-63); ALBUMIN 3.2 g/dl (3.4-5.0); ALKALINE PHOSPHATASE 221 U/L (46-116); ANION GAP 13.9 (5-15); ASPARTATE AMNIOTRANSFERASE,AST 35 U/L (15-37); BILIRUBIN TOTAL 0.9 mg/dL (0.2-1.0); BLOOD UREA NITROGEN,BUN 25 mg/dL (7-18); BUN/CREATININE RATIO 20.8 (14-18); CALCIUM 8.7 mg/dL (8.5-10.1); CARBON DIOXIDE,CO2 30 mEq/L (21-32); CHLORIDE,CL 99 mEq/L (98-107); CREATININE 1.2 mg/dL (0.7-1.3); ESTIMATED GFR 64 mL/min (>60); GLUCOSE RANDOM 108 mg/dL (70-99); PHOSPHORUS 4.5 mg/dL (2.6-4.7); PROTEIN TOTAL,TP 6.9 g/dl (6.4-8.2); SODIUM,NA 139 mEq/L (136-145)
[2024-05-15 06:32] LABS: BASOPHILS PERCENT AUTO 0.5 % (0.0-1.0); EOSINOPHILS ABSOLUTE AUTO 0.1 K/mm3 (0.0-0.4); EOSINOPHILS PERCENT AUTO 1.2 % (0.0-6.0); HEMATOCRIT 45.2 % (42.0-52.0); HEMOGLOBIN 14.2 gm/dl (14.0-18.0); IMMATURE GRAN ABSOLUTE AUTO 0.04 K/mm3 (0.00-0.05); IMMATURE GRAN PERCENT AUTO 0.5 % (0.0-0.4); LYMPHOCYTES ABSOLUTE AUTO 2.1 K/mm3 (1.0-4.8); LYMPHOCYTES PERCENT AUTO 24.4 % (24.0-44.0); MEAN CORPUSCULAR HEMOGLOBIN 25.4 pg (28.0-32.0); MEAN CORPUSCULAR HGB CONC 31.4 g/dl (32.0-36.0); MEAN CORPUSCULAR VOLUME 80.7 fl (83.0-99.0); MEAN PLATELET VOLUME 10.9 fl (9.4-12.4); MONOCYTES ABSOLUTE AUTO 0.9 K/mm3 (0.0-0.8); NEUTROPHILS ABSOLUTE AUTO 5.4 K/mm3 (1.8-7.7); NEUTROPHILS PERCENT AUTO 62.4 % (41.0-71.0); PLATELET COUNT,PLT 273 K/mm3 (150-400); WHITE BLOOD CELL COUNT,WBC 8.58 K/mm3 (3.9-11.3)
[2024-05-15 07:00] LABS: POTASSIUM,K 3.9 mEq/L (3.5-5.1)
[2024-05-15] MEDS ORDERED: Sodium Chloride 0.9% 10 ML Syringe FLUSH PRN (09:38)
[2024-05-15] MEDS: Potassium Chloride 20 MEQ Tab.ER PO SCH (10:02)
[2024-05-15] MEDS: Tamsulosin 0.4 MG Cap.ER PO SCH (10:02)
[2024-05-15] MEDS: Pravastatin 20 MG Tab PO SCH (10:02)
[2024-05-15] MEDS: Acetaminophen 325 MG Tab PO SCH (10:03)
[2024-05-15] MEDS: Furosemide 20 MG Tab PO SCH (10:03)
[2024-05-15] MEDS: cefTRIAXone 1 GM in Sodium Chloride 0.9% 100 ML IV SCH (10:04)
[2024-05-15] MEDS: Empagliflozin 10 MG Tab PO SCH (10:11)
[2024-05-15] MEDS: Sacubitril/Valsartan 1 EACH Tablet PO SCH (10:19)
[2024-05-15] MEDS ORDERED: Lidocaine 4% 1 each Patch TOP PRN (11:09)
[2024-05-15] MEDS ORDERED: traMADol 50 MG Tab PO PRN ×2 (11:09→16:31)
[2024-05-15] MEDS: Midodrine 5 MG Tab PO SCH (14:08)
[2024-05-15] MEDS: Sodium Chloride 0.9% 10 ML Syringe FLUSH SCH (20:23)
[2024-05-16 06:21] LABS: BASOPHILS PERCENT AUTO 0.3 % (0.0-1.0); EOSINOPHILS ABSOLUTE AUTO 0.2 K/mm3 (0.0-0.4); HEMOGLOBIN 13.5 gm/dl (14.0-18.0); IMMATURE GRAN ABSOLUTE AUTO 0.03 K/mm3 (0.00-0.05); IMMATURE GRAN PERCENT AUTO 0.3 % (0.0-0.4); LYMPHOCYTES ABSOLUTE AUTO 2.2 K/mm3 (1.0-4.8); LYMPHOCYTES PERCENT AUTO 23.1 % (24.0-44.0); MEAN CORPUSCULAR HGB CONC 31.4 g/dl (32.0-36.0); MEAN CORPUSCULAR VOLUME 79.8 fl (83.0-99.0); MEAN PLATELET VOLUME 10.6 fl (9.4-12.4); MONOCYTES PERCENT AUTO 10.1 % (0.0-8.0); NEUTROPHILS PERCENT AUTO 64.2 % (41.0-71.0); PLATELET COUNT,PLT 259 K/mm3 (150-400); RED BLOOD CELL COUNT 5.39 M/mm3 (4.52-5.90); WHITE BLOOD CELL COUNT,WBC 9.37 K/mm3 (3.9-11.3)
[2024-05-16 07:08] LABS: A/G RATIO 0.8 (1-2); ALBUMIN 3.2 g/dl (3.4-5.0); ANION GAP 11.9 (5-15); BILIRUBIN TOTAL 0.9 mg/dL (0.2-1.0); EST CRCL DRUG DOSING (CG) 70.94 mL/min; MAGNESIUM 2.1 mg/dL (1.8-2.4); POTASSIUM,K 3.9 mEq/L (3.5-5.1); PROTEIN TOTAL,TP 7.1 g/dl (6.4-8.2)
[2024-05-16] MEDS: Furosemide 40 MG Tab PO SCH (09:07)
[2024-05-16] MEDS: Empagliflozin 10 MG Tab PO SCH (09:14)
[2024-05-17 06:35] LABS: BASOPHILS ABSOLUTE AUTO 0.1 K/mm3 (0.0-0.2); BASOPHILS PERCENT AUTO 0.6 % (0.0-1.0); EOSINOPHILS ABSOLUTE AUTO 0.2 K/mm3 (0.0-0.4); EOSINOPHILS PERCENT AUTO 2.4 % (0.0-6.0); HEMATOCRIT 42.7 % (42.0-52.0); HEMOGLOBIN 13.4 gm/dl (14.0-18.0); IMMATURE GRAN ABSOLUTE AUTO 0.03 K/mm3 (0.00-0.05); IMMATURE GRAN PERCENT AUTO 0.3 % (0.0-0.4); LYMPHOCYTES ABSOLUTE AUTO 2.3 K/mm3 (1.0-4.8); LYMPHOCYTES PERCENT AUTO 24.2 % (24.0-44.0); MEAN CORPUSCULAR HEMOGLOBIN 25.4 pg (28.0-32.0); MEAN CORPUSCULAR HGB CONC 31.4 g/dl (32.0-36.0); MEAN PLATELET VOLUME 10.7 fl (9.4-12.4); MONOCYTES PERCENT AUTO 10.1 % (0.0-8.0); NEUTROPHILS ABSOLUTE AUTO 5.9 K/mm3 (1.8-7.7); NEUTROPHILS PERCENT AUTO 62.4 % (41.0-71.0); PLATELET COUNT,PLT 259 K/mm3 (150-400); RED BLOOD CELL COUNT 5.27 M/mm3 (4.52-5.90); WHITE BLOOD CELL COUNT,WBC 9.51 K/mm3 (3.9-11.3)
[2024-05-17 07:09] LABS: A/G RATIO 0.8 (1-2); ALBUMIN 3.3 g/dl (3.4-5.0); ANION GAP 13.8 (5-15); BILIRUBIN TOTAL 0.8 mg/dL (0.2-1.0); BUN/CREATININE RATIO 22.5 (14-18); CREATININE 1.2 mg/dL (0.7-1.3); EST CRCL DRUG DOSING (CG) 58.3 mL/min; MAGNESIUM 2.2 mg/dL (1.8-2.4); POTASSIUM,K 3.8 mEq/L (3.5-5.1); PROTEIN TOTAL,TP 7.3 g/dl (6.4-8.2)
== END 2024-05-17 14:14 | disposition home or self-care (01) | DRG 699 ==
LOC: JD.ED 12:19 → JD.MS 17:33
PROVIDERS: ADMIT Family Medicine; ATTEND Family Medicine
DX: F03.90 Unspecified dementia, unspecified severity, without behavioral disturbance, psychotic disturbance, mood disturbance, and anxiety (principal); T83.511A Infection and inflammatory reaction due to indwelling urethral catheter, initial encounter; E46 Unspecified protein-calorie malnutrition; E11.9 Type 2 diabetes mellitus without complications; I50.22 Chronic systolic (congestive) heart failure; R62.7 Adult failure to thrive; N39.0 Urinary tract infection, site not specified; Z68.21 Body mass index [BMI] 21.0-21.9, adult; Z66 Do not resuscitate; F03.B0 Unspecified dementia, moderate, without behavioral disturbance, psychotic disturbance, mood disturbance, and anxiety; R26.2 Difficulty in walking, not elsewhere classified; N40.0 Benign prostatic hyperplasia without lower urinary tract symptoms; F32.A Depression, unspecified; I48.0 Paroxysmal atrial fibrillation; J43.1 Panlobular emphysema; E11.59 Type 2 diabetes mellitus with other circulatory complications; E11.65 Type 2 diabetes mellitus with hyperglycemia; D72.829 Elevated white blood cell count, unspecified; J44.9 Chronic obstructive pulmonary disease, unspecified; Z90.5 Acquired absence of kidney; Z79.899 Other long term (current) drug therapy; Z95.810 Presence of automatic (implantable) cardiac defibrillator; Z79.01 Long term (current) use of anticoagulants
CPT/HCPCS: 36415; 51702; 80053; 81001; 82947; 83735; 84100; 85025; 87086; 87088; 87186; 97161-GP; 99284; 99285; A9270-GY; J0696; J1650; J1815; J3490